=== PATIENT | female | born 1930 | race Hispanic/Latino ===

== ENCOUNTER 2016-10-21 10:11 | Emergency (ER) | payer OTHER, MEDICARE ==
[~2016-10-21] VITALS: Ht 139.7 cm; Wt 56.7 kg
[~2016-10-21 10:11] MED LIST: CIPROFLOXACIN500 MG PO; IMODIUM2 MG PO; IRBESARTAN150 MG PO; PRAVASTATIN SOD40 MG PO; PROTONIX 40MG T40 MG PO
--- NOTE | 2016-10-21 10:26 | ED GI/GU/ABDOMINAL COMPLAINT ---
History of Present Illness General Chief Complaint: General Adult Stated Complaint: SENT IN BY MD FOR NVD Source: patient, family Exam Limitations: language barrier Vital Signs & Intake/Output Vital Signs & Intake/Output Vital Signs Date Time Temp Pulse Resp B/P B/P Pulse O2 O2 Flow FiO2 Mean Ox Delivery Rate 10/21 1446 6.4 94 18 143/82 96 10/21 1134 Room Air Room Air 10/21 1020 97.0 103 16 124/78 94 Room Air Allergies Coded Allergies: Penicillins (HIVES 10/21/16) Reconcile Medications Irbesartan 150 MG TABLET 1 TAB PO DAILY BP (Reported) Memantine HCl (Namenda XR) 14 MG CAP.SPR.24 1 CAP PO DAILY MEMORY (Reported) Pravastatin Sodium 40 MG TABLET 1 TAB PO DAILY CHOLESTEROL (Reported) Triage Note: PT SENT IN BY PCP FOR N/V/D THAT STARTED FOR THE PAST 3 DAYS. PT PCP IS DR. STEVENSON. PT STATES SHE HAS A TUMOR GROWING NEXT TO HER "BELLYBUTTON" PT HAS BEEN UNABLE TO EAT FOR THE PAST FEW DAYS. Triage Nurses Notes Reviewed? yes ? N Is pt currently ? No Onset: Abrupt Duration: constant Timing: recent history Quality/Severity: moderate Severity Numbers: 5 Location: periumbilical Radiation: no radiation Activities at Onset: none HPI: Patient is a 85-year-old female with past medical history of hypertension, hyperlipidemia, IBS and frequent urination and hematuria and bladder calculi were patient has received in 2017 A Cystolitholapaxy performed by DR. LEONE in which history is limited due to patient being primarily Azeri-speaking however she resents emergency room with abdominal pain. Last bowel movement was today no blood no melena noted. Denies any fever chills cough shortness breath back pain nausea vomiting dysuria hematuria or vaginal bleeding or discharge. Patient states that she was able to drink coffee today with no change in symptoms It is also noted to me that patient was dropped off by grandson and which nurses state that there is concerns of dementia in which history is limited (ALLEY DAVIDSON) Past History Travel History Traveled to [place] past 21 day No Medical History Any Pertinent Medical History? see below for history Neurological: NONE EENT: NONE Cardiovascular: hypertension, hyperlipidemia Respiratory: NONE Gastrointestinal: irritable bowel syndrome Hepatic: NONE Renal: nephrolithiasis Musculoskeletal: NONE Psychiatric: NONE Endocrine: NONE Blood Disorders: NONE Cancer(s): NONE WHEEL FILLER/Reproductive: NONE Tetanus Vaccine: 12/15/14 Surgical History Surgical History: appendectomy, hysterectomy Psychosocial History Who do you live with Daughter Services at Home None What is your primary language Azeri Tobacco Use: Quit >30 days ago ETOH Use: denies use Illicit Drug Use: denies illicit drug use Family History Hx Contributory? No (ALLEY DAVIDSON) Review of Systems Review of Systems Constitutional: Reports: no symptoms. EENTM: Reports: no symptoms. Respiratory: Reports: no symptoms. Cardiovascular: Reports: no symptoms. GI: Reports: see HPI, abdominal pain. Genitourinary: Reports: no symptoms. Musculoskeletal: Reports: no symptoms. Skin: Reports: no symptoms. Neurological/Psychological: Reports: no symptoms. Hematologic/Endocrine: Reports: no symptoms. Immunologic/Allergic: Reports: no symptoms. All Other Systems: Reviewed and Negative (ALLEY DAVIDSON) Physical Exam Physical Exam General Appearance: no apparent distress, alert, comfortable Gastrointestinal: normal bowel sounds, soft, no organomegaly, distention, MODERATE PERIUMBILICAL PAIN NOTED Comments: Well-developed well-nourished person in no acute distress HEENT: Normal EENT exam Neck: Supple, no lymphadenopathy, normal range of motion without pain or tenderness Back: Nontender, no CVA tenderness. Cardiovascular: Regular rate and rhythms no murmurs rubs or gallops, normal JVP Respiratory: Chest nontender. No respiratory distress.breath sounds clear to auscultation bilaterally Extremity: No edema, no calf tenderness to palpation, normal and equal pulses. Neuro: Alert oriented x3, motor sensory normal, Skin: No appreciable rash on exposed skin, skin is warm and dry. Psych: Mood and affect is normal, memory and judgment is normal. Core Measures ACS in differential dx? No Severe Sepsis Present: No Septic Shock Present: No (ALLEY DAVIDSON) Progress Differential Diagnosis: AAA, AMI, biliary colic, bowel obstruction, colon cancer , cholecystitis, diverticulitis, endometritis, esophageal varices, gastritis, hepatitis, hernia, hemorrhoids, ischemic bowel, inflamm bowel dis, kidney stone, Marlyn-Tiff tear, ovarian cyst, ovarian torsion, pancreatitis, PID/cervicitis, peptic ulcer, PUD/GERD, perforated viscous, SBO, UTI/pyelo Plan of Care: Orders Procedure Date/time Status Heart Healthy Diet 10/21 D Active CASE MANAGEMENT CONSULT 10/21 1525 Active LACTIC ACID 10/21 1341 Active LIPASE 10/21 1041 Complete LACTIC ACID 10/21 1041 Complete COMPREHENSIVE METABOLIC PANEL 10/21 1041 Complete CBC WITHOUT DIFFERENTIAL 10/21 1041 Complete AMYLASE 10/21 1041 Complete CULTURE,URINE 10/21 1028 Active URINALYSIS 10/21 1028 Complete Laboratory Tests 10/21/16 1400: Urine Color STRAW, Urine Clarity CLEAR, Urine pH 6.0, Ur Specific Henry <= 1.005, Urine Protein NEG, Urine Ketones NEG, Urine Nitrite NEG, Urine Bilirubin NEG, Urine Urobilinogen 0.2, Ur Leukocyte Esterase TRACE H, Ur Microscopic SEDIMENT EXAMINED, Urine RBC 1-3, Urine WBC RARE, Urine Hemoglobin SMALL H, Urine Glucose NEG 10/21/16 1120: Anion Gap 15, Estimated GFR 39 L, BUN/Creatinine Ratio 25.4 H, Glucose 83, Lactic Acid 1.0, Calcium 9.6, Total Bilirubin 0.8, AST 32, ALT 29, Alkaline Phosphatase 49, Total Protein 7.6, Albumin 4.4, Globulin 3.2, Albumin/Globulin Ratio 1.4, Amylase 121 H, Lipase 271 10/21/16 1115: CBC w Diff NO MAN DIFF REQ, RBC 4.06 L, MCV 91.9, MCH 31.1 H, RDW 13.2, MPV 7.3 L, Gran % 75.5 H, Lymphocytes % 18.7 L, Monocytes % 4.8, Eosinophils % 0.7, Basophils % 0.3, Absolute Granulocytes 7.1 H, Absolute Lymphocytes 1.7, Absolute Monocytes 0.4, Absolute Eosinophils 0.1, Absolute Basophils 0, PUBS MCHC 33.8 Microbiology 10/21 1400 URINE ROUT: Urine Culture - RECD 10/21/16 1323 patient is resting comfortably at bedside no apparent distress Blood work is unremarkable Urine analysis unremarkable CT scan showed concerns of a 1.3 cm abdominal wall cyst with no concerns of surrounding infection Patient ambulated to the bathroom with stable gait Patient was able tolerate by mouth upon discharge Case management evaluated patient and will be providing home health services for patient. Jono presented to pick patient up which patient has been ambulating on multiple occasions the bathroom normal steady gait. Upon discharge patient denies any pain and was able to eat an entire meal Discussed patient with who agrees with disposition and plan (ESTELITA WILKERSON,ALLEY) Diagnostic Imaging: Viewed by Me: CT Scan. Radiology Impression: SEE COMMENTS Initial ED EKG: none Comments: PATIENT: LASHAY ELAINE PRESENT AGE: 85 PATIENT ACCOUNT NO: [id number] : [birth year] LOCATION: [facility] ORDERING PHYSICIAN: ALLEY WILKERSON SERVICE DATE: 10/21/16 EXAM TYPE: CAT - CT ABD & PELVIS W IV CONTRAST EXAMINATION: CT ABDOMEN AND PELVIS WITH CONTRAST CLINICAL INFORMATION: Periumbilical pain. COMPARISON: CT of the abdomen and pelvis from 12/14/2014 TECHNIQUE: Multidetector volumetric imaging was performed of the abdomen and pelvis before and after the IV administration of 95 mL of Optiray 320 intravenous contrast. Sagittal and coronal reformatted images were obtained on the technologist's workstation. DLP: 222 mGy-cm FINDINGS: LUNG BASES: There is platelike opacity in the right lung base posteriorly suggesting atelectasis or scar. Minor platelike opacity in the left lower lobe as well. The visualized heart and pericardium appear unremarkable. There are calcifications in the region of the aortic valve. LIVER, GALLBLADDER, AND BILIARY TREE: The liver is notable for a peripherally calcified 9 mm structure in the posterior right lobe, stable. The gallbladder is unremarkable with no evidence of radiopaque gallstones, gallbladder wall thickening, or obvious pericholecystic inflammatory changes. PANCREAS: Unremarkable. SPLEEN: Unremarkable. ADRENAL GLANDS: Unremarkable. KIDNEYS AND URETERS: The kidneys are normal in size, shape, and attenuation. The position of the right kidney is slightly different from 2015, more elongated in the AP dimension. This is most likely due to slight differences in angulation of the acquired images. No hydronephrosis, hydroureter, or calculi seen. No perinephric stranding. BLADDER: There are small foci of intraluminal air within the bladder. Correlation with recent instrumentation or catheterization. Since the prior study several of the course stones within the bladder lumen has been resected. There are small group of stones remaining within the left side of the bladder lumen spanning approximately 1.6 cm in total. GASTROINTESTINAL TRACT: Loops of small bowel are normal in caliber. There is some suture material within the right abdomen, unchanged suggesting prior appendectomy. The colon is normal in caliber. No inflammatory change surrounding loops of bowel. The appendix is not definitively visualized. ABDOMINAL WALL: There is a 1.3 cm cystic-appearing structure in the umbilicus without surrounding stranding. LYMPH NODES: No adenopathy is visualized. VASCULAR: There is calcification of the aorta without aneurysmal dilatation. The portal vein is patent. PELVIC VISCERA: There is a stable 3 cm left adnexal cyst. There has been hysterectomy. No right adnexal masses are visualized. OSSEOUS STRUCTURES: There is chronic deformity of the left superior pubic ramus compatible with the sequela of prior trauma, unchanged. There is a mild levoconvex lumbar scoliosis. There is multilevel spondylosis. No compression deformities. There is grade 1 degenerative anterolisthesis of L4 on L5. IMPRESSION: 1. 1.3 cm fluid collection within the umbilicus without surrounding inflammatory change. 2. Stones within the bladder lumen, decreased in number and size from the prior study of 2014. Small foci of air within the bladder lumen. Correlation with any recent instrumentation is recommended. 3. Stable 3 cm left adnexal cyst. 4. Chronic deformity of the left superior pubic ramus. Lumbar scoliosis and multilevel spondylosis. (ALLEY DAVIDSON) Departure Departure Disposition: HOME OR SELF CARE Condition: Stable Clinical Impression Primary Impression: Abdominal pain Secondary Impressions: Abdominal wall mass Referrals: INES MOISE DO (PCP/Family) Additional Instructions: As discussed begin [id number]-[id number] Tylenol if needed for pain If no better in 2 days follow-up with your primary care doctor. If symptoms worsen return to emergency room. Begin eating and drinking a well healthy balanced diet As discussed you will receive a phone call for an appointment for home health services. Departure Forms: Customer Survey General Discharge Information (ALLEY DAVIDSON) PA/SPORTS FITNESS AND WELLNESS DIRECTOR Co-Sign Statement Statement: ED Attending supervision documentation- x I saw and evaluated the patient. I have also reviewed all the pertinent lab results and diagnostic results. I agree with the findings and the plan of care as documented in the PA's/SPORTS FITNESS AND WELLNESS DIRECTOR's documentation. [] I have reviewed the ED Record and agree with the PA's/SPORTS FITNESS AND WELLNESS DIRECTOR's documentation. [] Additions or exceptions (if any) to the PAs/SPORTS FITNESS AND WELLNESS DIRECTOR's note and plan are summarized below: [] (ANGEL MITCHELL,ADRIAN)
[2016-10-21 11:33] LABS: ABSOLUTE BASOPHIL COUNT 0 /CUMM (0.0-0.2); ABSOLUTE EOSINOPHIL COUNT 0.1 /CUMM (0.0-0.7); ABSOLUTE GRANULOCYTE CT 7.1 /CUMM (1.4-6.5); ABSOLUTE LYMPH COUNT 1.7 /CUMM (1.2-3.4); ABSOLUTE MONOCYTE COUNT 0.4 /CUMM (0.10-0.60); BASOPHIL % 0.3 % (0.0-2.0); EOSINOPHIL % 0.7 % (0-5); GRANULOCYTE % 75.5 % (42.2-75.2); HEMATOCRIT 37.3 % (37-47); MEAN CORPUSCULAR HGB 31.1 PG (27.0-31.0); MEAN CORPUSCULAR HGB CONC 33.8 G/DL (33.0-37.0); MEAN CORPUSCULAR VOLUME 91.9 FL (81.0-99.0); MEAN PLATELET VOLUME 7.3 FL (7.4-10.4); PLATELET COUNT 234 /CUMM (130-400); RBC DISTRIBUTION WIDTH 13.2 % (11.5-14.5); RED BLOOD CELL CT 4.06 /CUMM (4.20-5.40); WHITE BLOOD CELL COUNT 9.4 /CUMM (4.8-10.8)
--- NOTE | 2016-10-21 13:42 | CT SCAN REPORT ---
EXAMINATION: CT ABDOMEN AND PELVIS WITH CONTRAST CLINICAL INFORMATION: Periumbilical pain. COMPARISON: CT of the abdomen and pelvis from 12/14/2014 TECHNIQUE: Multidetector volumetric imaging was performed of the abdomen and pelvis before and after the IV administration of 95 mL of Optiray 320 intravenous contrast. Sagittal and coronal reformatted images were obtained on the technologist's workstation. DLP: 222 mGy-cm FINDINGS: LUNG BASES: There is platelike opacity in the right lung base posteriorly suggesting atelectasis or scar. Minor platelike opacity in the left lower lobe as well. The visualized heart and pericardium appear unremarkable. There are calcifications in the region of the aortic valve. LIVER, GALLBLADDER, AND BILIARY TREE: The liver is notable for a peripherally calcified 9 mm structure in the posterior right lobe, stable. The gallbladder is unremarkable with no evidence of radiopaque gallstones, gallbladder wall thickening, or obvious pericholecystic inflammatory changes. PANCREAS: Unremarkable. SPLEEN: Unremarkable. ADRENAL GLANDS: Unremarkable. KIDNEYS AND URETERS: The kidneys are normal in size, shape, and attenuation. The position of the right kidney is slightly different from 2015, more elongated in the AP dimension. This is most likely due to slight differences in angulation of the acquired images. No hydronephrosis, hydroureter, or calculi seen. No perinephric stranding. BLADDER: There are small foci of intraluminal air within the bladder. Correlation with recent instrumentation or catheterization. Since the prior study several of the course stones within the bladder lumen has been resected. There are small group of stones remaining within the left side of the bladder lumen spanning approximately 1.6 cm in total. GASTROINTESTINAL TRACT: Loops of small bowel are normal in caliber. There is some suture material within the right abdomen, unchanged suggesting prior appendectomy. The colon is normal in caliber. No inflammatory change surrounding loops of bowel. The appendix is not definitively visualized. ABDOMINAL WALL: There is a 1.3 cm cystic-appearing structure in the umbilicus without surrounding stranding. LYMPH NODES: No adenopathy is visualized. VASCULAR: There is calcification of the aorta without aneurysmal dilatation. The portal vein is patent. PELVIC VISCERA: There is a stable 3 cm left adnexal cyst. There has been hysterectomy. No right adnexal masses are visualized. OSSEOUS STRUCTURES: There is chronic deformity of the left superior pubic ramus compatible with the sequela of prior trauma, unchanged. There is a mild levoconvex lumbar scoliosis. There is multilevel spondylosis. No compression deformities. There is grade 1 degenerative anterolisthesis of L4 on L5. IMPRESSION: 1. 1.3 cm fluid collection within the umbilicus without surrounding inflammatory change. 2. Stones within the bladder lumen, decreased in number and size from the prior study of 2014. Small foci of air within the bladder lumen. Correlation with any recent instrumentation is recommended. 3. Stable 3 cm left adnexal cyst. 4. Chronic deformity of the left superior pubic ramus. Lumbar scoliosis and multilevel spondylosis.
[2016-10-21] MEDS ORDERED: PRAVASTATIN SOD40 M2 PO (14:31)
[2016-10-21] MEDS ORDERED: IRBESARTAN150 M1 PO (14:31)
[2016-10-21] MEDS ORDERED: NAMENDA XR14 M1 PO (14:31)
[2016-10-21 14:46] VITALS: BP 143/82
--- NOTE | 2016-10-21 15:50 | NUR ---
Case Mgmnt TSF: I went in to speak with patient and grandson. I gave them our brochure and card. They have no preferences for [facility]. I set them up with [facility]. I have faxed over all clinical to them. They will go and open case on 10/22/16. I let patient and family know that agency would call prior to going out to see patient. Fax confirmation received. CM complete.
== END 2016-10-21 15:50 ==
LOC: ERH 10:11
PROVIDERS: Physician Assistant
DX: R19.00 Intra-abdominal and pelvic swelling, mass and lump, unspecified site (principal); R10.33 Periumbilical pain; I10 Essential (primary) hypertension; Z87.891 Personal history of nicotine dependence
CPT/HCPCS: 74177; 81001; 87086; J7040